=== PATIENT | female | born 1980 ===

== ENCOUNTER 2021-05-18 07:02 | Day surgery (SDC) | payer OTHER, SELFPAY ==
[~2021-05-18] VITALS: Ht 160 cm; Wt 75.7 kg
[2021-05-18] MEDS ORDERED: fentaNYL citrate 0.05 MG/ML VIAL ONE (07:48)
[2021-05-18] MEDS ORDERED: MIDAZOLAM 5 MG/5 ML VIAL ONE (07:48)
[2021-05-18] MEDS ORDERED: MIDAZOLAM 2 MG/2 ML VIAL IVP ONE (08:10)
== END 2021-05-18 08:33 | disposition home or self-care (01) ==
LOC: MDS 07:02 → MMU 07:03 → MDS 08:33
PROVIDERS: ATTEND Internal Medicine Gastroenterology
DX: R13.10 Dysphagia, unspecified (principal); K30 Functional dyspepsia; Z20.822 Contact with and (suspected) exposure to COVID-19
CPT/HCPCS: 36415; 43239; 81025; 86677; 87426; J2250; J3010